=== PATIENT | female | born 1970 | race Two or more races ===

== ENCOUNTER 2021-08-27 22:34 | Emergency (ER) | payer OTHER ==
[~2021-08-27] VITALS: Ht 160 cm; Wt 72.6 kg
[2021-08-27] MEDS ORDERED: FOSTEUM CAPSUL1 EACH (23:28)
[2021-08-28] MEDS ORDERED: KETO10TA2 PO (02:23)
[2021-08-28] MEDS ORDERED: DUI500 PO (02:23)
== END 2021-08-28 02:30 ==
LOC: ER 22:34
DX: H01.8 Other specified inflammations of eyelid (principal)

== ENCOUNTER 2022-06-28 05:45 | Emergency (ER) | payer OTHER ==
[~2022-06-28] VITALS: Ht 157.5 cm; Wt 70.3 kg
[~2022-06-28 05:45] MED LIST: DUI500 PO; FOSTEUM CAPSUL1 EACH; KETO10TA2 PO
[2022-06-28] MEDS ORDERED: GENVOYA (06:09)
== END 2022-06-28 08:35 | disposition home or self-care (01) ==
LOC: ER 05:45
DX: M77.8 Other enthesopathies, not elsewhere classified (principal)

== ENCOUNTER 2023-05-30 05:44 | Day surgery (SDC) | payer OTHER ==
[2023-05-23 10:15] LABS: HEMATOCRIT 40.3 % (36.0-45.00); HEMOGLOBIN 13.6 g/dL (12.0-15.00); MEAN CELL VOLUME 100.1 fL (80.00-100.00); MEAN CORPUSCULAR HEMOGLOBIN 33.9 pg (27.00-32.0); MEAN CORPUSCULAR HGB CONC 33.9 g/dl (32.0-36.0); PLATELET COUNT 259 K/uL (150-450); RED BLOOD COUNT 4.03 M/uL (4.00-6.00); RED CELL DISTRIBUTION WIDTH 13.8 % (11.5-14.5)
[2023-05-23 10:20] LABS: PH,URINE 6.5 (5.0-8.0); URINE APPEARANCE Clear; URINE BILIRRUBIN Negative (NEGATIVE); URINE BLOOD Negative; URINE COLOR Yellow; URINE GLUCOSE Negative (NEGATIVE); URINE LEUKOCYTE Negative; URINE NITRATE Negative; URINE PROTEIN Negative (NEGATIVE); URINE UROBILINOGEN 0.2 E.U./dl
[2023-05-23 10:23] LABS: URINE BACTERIA 220.4 uL (0.0-1933); URINE EPITHELIAL CELLS 3.7 uL (0.0-38.8); URINE RBC 7.9 uL (0.0-20.8); URINE WBC 1.8 uL (0.0-23.2)
[2023-05-23 11:13] LABS: INR 0.96; PARTIAL THROMBOPLASTIN TIME 30.9 SECONDS (22.0-34.0); PROTHROMBIN TIME 10.1 SECONDS (9.0-11.5)
[2023-05-23 11:44] LABS: ALBUMIN 3.8 gm/dL (3.4-5.0); BILIRUBIN TOTAL 0.24 mg/dL (0.3-1.2); CALCIUM 9.6 mg/dL (8.5-10.1); CREATININE SERUM 0.49 mg/dL (0.55-1.02); GFR 133.14; GLOBULINA 3.5 G/DL (2.4-3.5); POTASSIUM 4.22 mEq/L (3.5-5.1); TOTAL PROTEIN 7.3 gm/dL (6.4-8.2)
[~2023-05-30] VITALS: Ht 157.5 cm; Wt 72.6 kg
[~2023-05-30 05:44] MED LIST changes: +GENVOYA
[2023-05-30] MEDS ORDERED: BUPIVACAINE HCL/PF 0.5% 30ML ML ONE (06:45)
[2023-05-30] MEDS ORDERED: CEFAZOLIN SODIUM 1,000 MG VIAL ONE (06:49)
[2023-05-30] MEDS ORDERED: BUPIVACAINE HCL/PF 0.5% 5MG/ML VIAL IJ ONE (08:30)
[2023-05-30] MEDS ORDERED: ISOPROPYL ALCOHOL 30 ML OUNCE TOP ONE (08:30)
[2023-05-30] MEDS ORDERED: CEFAZOLIN SODIUM 1,000 MG VIAL IV ONE (08:30)
== END 2023-05-30 11:15 | disposition home or self-care (01) ==
LOC: CIR.AMB 05:44
PROVIDERS: ATTEND Orthopaedic Surgery Hand Surgery
DX: G56.01 Carpal tunnel syndrome, right upper limb (principal); E11.9 Type 2 diabetes mellitus without complications; E78.00 Pure hypercholesterolemia, unspecified; Z20.822 Contact with and (suspected) exposure to COVID-19; I10 Essential (primary) hypertension